=== PATIENT | female | born 1940 | race Caucasian/White ===

== ENCOUNTER 2018-12-08 18:03 | Inpatient (IN) ==
[2018-12-08 18:27] LABS: Hematocrit 40.1 % (35.3-44.9); Hemoglobin 13.6 g/dL (11.5-15.4); Mean Corpuscular HGB Conc 33.9 g/dL (31.6-35.5); Mean Corpuscular Hemoglobin 30.7 pg (28.0-33.3); Mean Corpuscular Volume 90.5 fL (83.0-100.0); Mean Platelet Volume 9.6 fL (9.4-12.4); Platelet Count 326 K/mcL (140-400); Red Blood Count 4.43 M/mcL (3.82-4.97); Red Cell Distribution Width 13.8 % (11.5-14.5)
[2018-12-08 18:36] LABS: Prothrombin Time 11.2 Seconds (9.4-12.1)
[2018-12-08] MEDS ORDERED: Aspirin 81 MG TAB.CHEW PO STA (19:00)
--- NOTE | 2018-12-08 19:07 | Emergency Department Note ---
Disposition Clinical Impression: CVA (cerebral vascular accident) Qualifiers: CVA mechanism: unspecified Qualified Code(s): I63.9 - Cerebral infarction, unspecified Disposition: Admitted As Inpatient Condition: Good Referrals: Bina Ontiveros MD [Primary Care Provider] - Time of Disposition: 19:07 General Adult HPI - General Chief complaint: ED Neuro Symptoms/Deficit Stated complaint: poss stroke Time Seen by Provider: 12/08/18 18:12 Source: patient, family Limitations: no limitations - History of Present Illness Pain Scale: 0 - Related Data Home Medications Medication Instructions Recorded Confirmed Aspirin 81 mg PO DAILY 03/24/16 03/24/16 Flaxseed Oil 1,000 mg PO DAILY 03/24/16 03/24/16 LORazepam [Ativan] 1 mg PO BID PRN 03/24/16 03/24/16 Lutein 40 mg PO DAILY 03/24/16 03/24/16 Multivitamin [Multi-Day Vitamins] 1 each PO DAILY 03/24/16 03/24/16 Previous Rx's Medication Instructions Recorded Aspirin 81 mg PO DAILY #30 tab.chew 03/27/16 Diltiazem CD (24hr) [Cardizem CD] 240 mg PO DAILY #30 cap.er.24h 03/27/16 Allergies Allergy/AdvReac Type Severity Reaction Status Date / Time No Known Allergies Allergy Verified 02/18/15 15:50 Past Medical History - Past Medical History Medical history: Reports: hypertension, other Surgical history: Reports: no surgical history Psychiatric history: Reports: no psych history 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 - Social History Smoking Status: Former smoker Smokeless Tobacco Status: No Alcohol use: Reports: none Drug use: Reports: none Physical Exam - General Limitations: no limitations General appearance: alert, in no apparent distress Course Vital Signs Temperature 97.6 F 12/08/18 18:03 Pulse Rate 70 12/08/18 18:03 Respiratory Rate 18 12/08/18 18:03 Blood Pressure 184/100 12/08/18 18:03 O2 Sat by Pulse Oximetry 97 12/08/18 18:03 Temperature 97.8 F 12/08/18 18:23 Pulse Rate 66 12/08/18 18:38 Respiratory Rate 18 12/08/18 18:38 Blood Pressure 165/69 12/08/18 18:38 O2 Sat by Pulse Oximetry 97 12/08/18 18:06 Oxygen Delivery Oxygen Delivery Room Air Medical Decision Making - Lab Data Result diagrams: 12/08/18 18:20 Lab Results 12/08/18 12/08/18 12/08/18 Range/Units 18:13 18:20 18:20 WBC 10.0 (4.3-11.1) K/mcL RBC 4.43 (3.82-4.97) M/mcL Hgb 13.6 (11.5-15.4) g/dL Hct 40.1 (35.3-44.9) % MCV 90.5 (83.0-100.0) fL MCH 30.7 (28.0-33.3) pg MCHC 33.9 (31.6-35.5) g/dL RDW 13.8 (11.5-14.5) % Plt Count 326 (140-400) K/mcL MPV 9.6 (9.4-12.4) fL PT 11.2 (9.4-12.1) Seconds INR 1.0 APTT 31.0 (26.0-36.0) Seconds POC Glucose 96 (70-99) mg/dL Attestation Statement - Attestation Attestation: I reviewed the residents documentation and agree with the residents assessment and plan of care. I have personally had face to face time with the patient. (Brief History, Brief Exam, and MDM) I personally supervised and was present for the guerrero/critical portions of the following procedures completed by the resident: EKG 78 year old female presents to the eD with complaints of right sided facial droop with last known well possibly being 1900 last night before bed. Cabrera has not previous history of strokes inthe past and her NIH score is 2. Patient has residual defecits on exam and we have called STROKE ALERT. Dr. Lewis from [facility] does not recommend tpa as she is outside the window but does recommend admission with MRI. Discussed case with Dr. dewitt and she accept to medicine.
--- NOTE | 2018-12-08 19:25 | Emergency Department Note ---
Disposition Clinical Impression: ANDER (acute kidney injury) CVA (cerebral vascular accident) Qualifiers: CVA mechanism: unspecified Qualified Code(s): I63.9 - Cerebral infarction, unspecified Disposition: Admitted As Inpatient Condition: Good Time of Disposition: 20:00 General Adult HPI - General Chief complaint: ED Neuro Symptoms/Deficit Stated complaint: poss stroke Time Seen by Provider: 12/08/18 18:12 Source: patient, family Limitations: no limitations Nursing Notes Reviewed: Yes Vital Signs Reviewed: Yes - History of Present Illness HPI Narrative: 78-year-old female presents emergency department with concern for last a well 23 hours prior to arrival. Patient with right-sided facial droop as well as some mild slurring of her speech. States that she has been going in and out of her known atrial fibrillation of last couple days. Denies fever, chills, chest pain, pressure, tightness, abdominal pain, nausea, vomiting., Dysuria, urinary urgency. Pain Scale: 0 - Related Data Home Medications Medication Instructions Recorded Confirmed Flaxseed Oil 1,000 mg PO DAILY 03/24/16 12/08/18 LORazepam [Ativan] 0.5 mg PO HS 03/24/16 12/08/18 Lutein 40 mg PO DAILY 03/24/16 12/08/18 Multivitamin [Multi-Day Vitamins] 1 each PO DAILY 03/24/16 12/08/18 Metoprolol [Lopressor] 37.5 mg PO BID 12/08/18 12/08/18 Previous Rx's Medication Instructions Recorded Aspirin 81 mg PO DAILY #30 tab.chew 03/27/16 Allergies Allergy/AdvReac Type Severity Reaction Status Date / Time No Known Allergies Allergy Verified 02/18/15 15:50 All systems ED: reviewed and negative except as stated. Review of Systems: As Per HPI Constitutional: Denies: fever, chills Cardiovascular: Reports: palpitations. Denies: chest pain Respiratory: Denies: cough, dyspnea Gastrointestinal: Denies: abdominal pain, nausea, vomiting Genitourinary: Denies: urgency, dysuria, frequency Neurological: Reports: other (Right-sided facial droop) Past Medical History - Past Medical History Attestation: Yes The following information was validated with the patient. 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 Absent: respiratory distress, accessory muscle use - Cardiovascular Cardiovascular exam: Present: regular rate, normal rhythm, normal heart sounds - Abdominal Exam Abdominal exam: Present: soft, Non-Tender. Absent: distention, guarding, rebound, rigidity - Extremities Exam Extremities exam: Present: normal capillary refill - Back Exam Back exam: Present: full ROM - Neurological Exam Neurological exam: Present: alert, oriented X3, other (Patient has right-sided facial droop with mild slurred speech. NIH of 2, GCS 15). Absent: motor sensory deficit - Psychiatric Psychiatric exam: Present: normal affect, normal mood - Skin Skin exam: Present: warm, dry, intact, normal color. Absent: rash Course Vital Signs Temperature 97.6 F 12/08/18 18:03 Pulse Rate 70 12/08/18 18:03 Respiratory Rate 18 12/08/18 18:03 Blood Pressure 184/100 12/08/18 18:03 O2 Sat by Pulse Oximetry 97 12/08/18 18:03 Temperature 97.9 F 12/08/18 23:59 Pulse Rate 63 12/08/18 23:59 Respiratory Rate 16 12/08/18 23:59 Blood Pressure 179/71 12/08/18 23:59 O2 Sat by Pulse Oximetry 96 12/08/18 23:59 Oxygen Delivery Oxygen Delivery Room Air Medical Decision Making - [facility] Narrative Medical decision making narrative: 78-year-old female was emergency department with concern for acute onset of stroke. Patient has an NIH of 2. She was initially 23 hours out of the window. CT of head and not reveal any acute changes. I spoke with Dr. Lewis from [facility] who had no relevant medications other than admission for further stroke evaluation after facility. Patient's right-sided facial droop had improved since initial presentation. We gave her aspirin.No acute ischemic changes are noted on the EKG. No significant changes compared to the old EKG dated on reveals sinus rhythm with no ischemic ST changes. No evidence of atrial fibrillation at this time. Patient did have an elevated creatinine which may have predisposed her to going in and out of A. fib over the last couple days which may have prompted the stroke. Patient also not taking her heart rate medication. She is also not on any blood thinners and does not want to be on them. Dr. Pulido accepted patient for admission. Head CT 12/08/18 18:13 IMPRESSION: No acute intracranial abnormality. Slight to mild cerebral atrophy appropriate for age. Mild chronic ischemic changes also age-appropriate. No significant change from the prior study. D/ / Leo Hernández MD / Leo Hernández MD Interpreting Provider: Leo Hernández MD - Lab Data Result diagrams: 12/08/18 18:20 12/08/18 18:20 Lab Results 12/08/18 12/08/18 12/08/18 Range/Units 18:13 18:20 18:20 WBC 10.0 (4.3-11.1) K/mcL RBC 4.43 (3.82-4.97) M/mcL Hgb 13.6 (11.5-15.4) g/dL Hct 40.1 (35.3-44.9) % MCV 90.5 (83.0-100.0) fL MCH 30.7 (28.0-33.3) pg MCHC 33.9 (31.6-35.5) g/dL RDW 13.8 (11.5-14.5) % Plt Count 326 (140-400) K/mcL MPV 9.6 (9.4-12.4) fL PT 11.2 (9.4-12.1) Seconds INR 1.0 APTT 31.0 (26.0-36.0) Seconds Sodium (136-145) mEq/L Potassium (3.5-5.1) mEq/L Chloride (98-107) mEq/L Carbon Dioxide (23-29) mEq/L BUN (8-23) mg/dL Creatinine (0.60-1.20) mg/dL Est GFR ( Amer) (> 60) Est GFR (Non-Af Amer) (> 60) BUN/Creatinine Ratio (6-26) Glucose (70-105) mg/dL POC Glucose 96 (70-99) mg/dL Calculated Osmolality (280-300) Calcium (8.6-10.3) mg/dL Troponin I (< 0.04) ng/mL 12/08/18 Range/Units 18:20 WBC (4.3-11.1) K/mcL RBC (3.82-4.97) M/mcL Hgb (11.5-15.4) g/dL Hct (35.3-44.9) % MCV (83.0-100.0) fL MCH (28.0-33.3) pg MCHC (31.6-35.5) g/dL RDW (11.5-14.5) % Plt Count (140-400) K/mcL MPV (9.4-12.4) fL PT (9.4-12.1) Seconds INR APTT (26.0-36.0) Seconds Sodium 139 (136-145) mEq/L Potassium 3.6 (3.5-5.1) mEq/L Chloride 104 (98-107) mEq/L Carbon Dioxide 22 L (23-29) mEq/L BUN 17 (8-23) mg/dL Creatinine 1.30 H (0.60-1.20) mg/dL Est GFR ( Amer) 48 L (> 60) Est GFR (Non-Af Amer) 40 L (> 60) BUN/Creatinine Ratio 13 (6-26) Glucose 97 (70-105) mg/dL POC Glucose (70-99) mg/dL Calculated Osmolality 289 (280-300) Calcium 9.3 (8.6-10.3) mg/dL Troponin I < 0.03 (< 0.04) ng/mL - EKG Data EKG #1 EKG attestation: Yes I reviewed and interpreted this EKG. EKG results narrative: 18:27 Heart rate 60 bpm, W[place] 142 ms, QRS is 101 ms, QTC 436 segs, attacks deviation. Sinus rhythm with no ischemic ST changes. NIH Stroke Scale - Level of Consciousness LOC: Alert - LOC Questions LOC Questions: Answers both correctly - LOC Commands LOC Commands: Performs both correctly - Best Gaze Best Gaze: Normal - Visual Visual: No visual loss - Facial Palsy Facial Palsy: Minor asymmetry on smiling, flattened nasolabial fold - Motor Arms Motor Arm-Left: No drift for 10 seconds Motor Arm-Right: No drift for 10 seconds - Motor Legs Motor Leg-Left: No drift for 5 seconds Motor Leg-Right: No drift for 5 seconds - Limb Ataxia Limb Ataxia: Normal, No Ataxia - Sensory Sensory: Normal - Best Language Best Language: No aphasia - Dysarthria Dysarthria: Mild, slurs some words - Extinction and Inattention Extinction and Inattention: Normal - NIHSS Total Score NIHSS Total Score: 2
[2018-12-08 19:49] LABS: Troponin I < 0.03 ng/mL (< 0.04)
[2018-12-08 20:01] LABS: BUN/Creatinine Ratio 13 (6-26); Blood Urea Nitrogen 17 mg/dL (8-23); Calcium 9.3 mg/dL (8.6-10.3); Carbon Dioxide 22 mEq/L (23-29); Chloride 104 mEq/L (98-107); Glucose 97 mg/dL (70-105); Osmolality,Calculated 289 (280-300); Potassium 3.6 mEq/L (3.5-5.1); Sodium 139 mEq/L (136-145); eGFR For African Americans 48 (> 60); eGFR For Non-African Americans 40 (> 60)
[2018-12-08] MEDS ORDERED: 0.9 % Sodium Chloride 1,000 ML IVC ONE (20:11)
--- NOTE | 2018-12-08 20:25 | Internal Med History&Physical ---
Date of Encounter: 12/08/18 Time of Encounter: 06:05 Internal Medicine - H&P: HPI Chief complaint: left side facial droop History of present illness: Ms. Zarco is a 78 year old female with past medical history of paroxysmal A. fib and hypertension who presented to the emergency department with left side facial droop and slurred speech and vision loss on the left eye. The patient stated that she was in and out atrial fibrillation for the last 2 days. The patient has history of paroxysmal A. fib and apparently declined anticoagulation therapy. The patient was evaluated by the ER staff and stroke alert was called. [facility] team decided the patient is not a candidate for thrombolytic therapy. CAT scan of the head revealed no significant abnormalities. The patient was admitted for further evaluation and management of CVA. Past Med Surg Social Fam HX - Past Medical History Medical history: hypertension, other Additional medical history: a. fib Psychiatric history: no psych history - Past Surgical History Surgical History: no surgical history - Social History Smoking Status: Former smoker Smokeless Tobacco Status: No Alcohol use: none Drug use: none - Family History Mother Living Status: Hx Family Cardiac Disorders: Yes Hx Family Respiratory Disorders: No Hx Family Cancer: No Hx Family GI Disorders: No Hx Family Endocrine Disorder: No Father Living Status: Age at : 68 Cause of : cardiac arrest Hx Family Respiratory Disorders: No Hx Family Cancer: No Hx Family GI Disorders: No Hx Family Genitourinary Disorders: No Hx Family Endocrine Disorder: No Hx Family Autoimmune Disorders: No Internal Medicine - H&P: Meds Lutein 40 mg PO QPM 03/24/16 [History] Cholecalciferol (Vitamin D3) [Vitamin D3] 1,000 units PO QAM 12/09/18 [History] Multivitamin [Daily Multiple Vitamin] 1 tab PO QPM 12/09/18 [History] Omeprazole Magnesium [Prilosec Otc] 20 mg PO DAILY 12/09/18 [History] Acetaminophen [Tylenol] 650 mg PO Q6HR PRN #30 tablet 12/11/18 [Rx] Atorvastatin [Lipitor] 40 mg PO HS #30 tablet 12/11/18 [Rx] LORazepam [Ativan] 0.5 mg PO HS 7 Days #7 tablet 12/11/18 [Rx] Lisinopril [Zestril] 10 mg PO DAILY #30 tablet 12/11/18 [Rx] Metoprolol XL (24 HR) Succ [Toprol Xl] 25 mg PO DAILY #30 tab.er.24h 12/11/18 [Rx] Rivaroxaban [Xarelto] 20 mg PO QDPC #30 tablet 12/11/18 [Rx] Allergy/AdvReac Type Severity Reaction Status Date / Time Milk Containing Products Allergy Vomiting Verified 12/13/18 09:09 All Systems PM: A 10-system review of systems was performed and is negative for pertinent findings except as documented above in the HPI. - Constitutional Vitals: Temp Pulse Resp BP Pulse Ox 97.8 F 63 18 160/134 98 12/08/18 18:23 12/08/18 20:01 12/08/18 20:01 12/08/18 20:01 12/08/18 20:01 General appearance: Present: A&O X 3 Exam: . - Head Head exam: Present: atraumatic, normocephalic - Neck Neck exam general surgery: Present: supple, trachea midline. Absent: lymphadenopathy - Respiratory Respiratory exam: Present: CTAB. Absent: accessory muscle use, rales, rhonchi, wheezes - Cardiovascular Cardiovascular exam: Present: RRR, +S1, +S2. Absent: diastolic murmur, gallop, rubs, systolic murmur - GI/Abdominal GI/Abdominal exam: Present: normal bowel sounds, soft, no peritoneal signs. Absent: distended, tenderness - Extremities Exam Extremities exam: Present: warm, radial pulses palpable and symmetrical. Absent: calf tenderness, cyanotic, pedal edema Internal Med - H&P Results - Labs CBC & Chem 7: 12/10/18 02:30 12/10/18 02:30 Labs: Short CBC 12/08/18 Range/Units 18:20 WBC 10.0 (4.3-11.1) K/mcL Hgb 13.6 (11.5-15.4) g/dL Hct 40.1 (35.3-44.9) % Plt Count 326 (140-400) K/mcL BMP 12/08/18 18:20 Sodium 139 Potassium 3.6 Chloride 104 Carbon Dioxide 22 L BUN 17 Creatinine 1.30 H Glucose 97 Calcium 9.3 Cardiac Enzymes 12/08/18 Range/Units 18:20 Troponin I < 0.03 (< 0.04) ng/mL - Impressions ITS Impressions Head CT 12/08/18 18:13 IMPRESSION: No acute intracranial abnormality. Slight to mild cerebral atrophy appropriate for age. Mild chronic ischemic changes also age-appropriate. No significant change from the prior study. 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 fib for the last 48 hours. Patient declined chronic anticoagulation therapy in the past. we'll continue to monitor patient in telemetry. 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 when nece ssary IV antihypertensive meds for systolic blood pressure above 180 and diastolic pressure above 100. Qualifiers: Hypertension type: unspecified Qualified Code(s): I10 - Essential (primary) hypertension (5) ANDER (acute kidney injury) Status: Acute Assessment and plan: most likely secondary to prerenal etiology in the setting of possible decreased kidney perfusion in the setting of Possible hypotensive episodes associated with paroxysmal A. fib, will start the patient on isotonic saline, continue to monitor SERGIO was, renal dosing of medication as current EGFR. - Time Spent With Patient Total time spent is greater than 50% in coordination of care (as documented) at patient's floor/unit and/or counseling patient:
[2018-12-08] MEDS ORDERED: Naloxone 0.4 MG/ML INJ IVP PRN (20:29)
[2018-12-08] MEDS ORDERED: 0.9 % Sodium Chloride 1,000 ML IVC SCH (22:00)
[2018-12-09 03:59] LABS: Bilirubin,Urine Negative (Negative); Blood,Urine Trace (Negative); Clarity,Urine Clear (Clear); Color,Urine Yellow (Yellow); Glucose,Urine (UA) Normal (Normal); Ketones,Urine Negative (Negative); Leukocyte Esterase,Urine Large (Negative); Nitrite,Urine Negative (Negative); Protein,Urine Negative (Neg-Trace); Specific Gravity,Urine 1.008 (1.010-1.025); Urobilinogen,Urine Normal (Normal)
[2018-12-09 04:02] LABS: Bacteria,Urine None Seen per hpf (None-Few); Hyaline Casts,Urine None Seen per lpf (None-Few); RBC,Urine 0-3 per hpf (0-3); Squamous Epithelial Cell,Urine Moderate per lpf (None-Few); WBC,Urine 50-100 per hpf (0-3)
[2018-12-09 04:09] LABS: Amphetamine Screen,Urine Negative ng/mL (Cutoff=1000); Barbiturate Screen,Urine Negative ng/mL (Cutoff=200); Benzodiazepines Screen,Urine Negative ng/mL (Cutoff=200); Cannabinoid Screen,Urine Negative ng/mL (Cutoff = 50); Cocaine Screen,Urine Negative ng/mL (Cutoff= 300); Opiate Screen,Urine Negative ng/mL (Cutoff=300); Phencyclidine Screen,Urine Negative ng/mL (Cutoff=25)
[2018-12-09 04:52] LABS: Basophils # 0.1 K/mcL (0.0-0.2); Basophils % 1.4 %; Eosinophils # 0.3 K/mcL (0.0-0.6); Eosinophils % 3.9 %; Hematocrit 37.7 % (35.3-44.9); Hemoglobin 12.7 g/dL (11.5-15.4); Immature Granulocytes % 0.3 % (0-4); Lymphocytes # 2.3 K/mcL (0.6-4.6); Lymphocytes % 29.2 %; Mean Corpuscular HGB Conc 33.7 g/dL (31.6-35.5); Mean Platelet Volume 9.9 fL (9.4-12.4); Monocytes # 0.6 K/mcL (0.0-1.3); Monocytes % 7.3 %; Neutrophils # 4.6 K/mcL (1.6-8.9); Platelet Count 284 K/mcL (140-400); Red Cell Distribution Width 13.7 % (11.5-14.5); Segmented Neutrophils % 57.9 %; White Blood Count 7.9 K/mcL (4.3-11.1)
[2018-12-09 04:58] LABS: Prothrombin Time 11.9 Seconds (9.4-12.1)
[2018-12-09 05:01] LABS: Activated Partial Thrombo Time 29.7 Seconds (26.0-36.0)
[2018-12-09 05:07] LABS: Phosphorous 3.3 mg/dL (2.7-4.5)
[2018-12-09 05:10] LABS: Alanine Aminotransferase 10 Units/L (7-52); Albumin 3.4 g/dL (3.5-5.7); Albumin/Globulin Ratio 1.2 (1.1-2.2); Alkaline Phosphatase 67 Units/L (34-104); Aspartate Amino Transferase 16 Units/L (13-39); BUN/Creatinine Ratio 11 (6-26); Bilirubin,Total 0.6 mg/dL (0.3-1.0); Blood Urea Nitrogen 14 mg/dL (8-23); Calcium 8.8 mg/dL (8.6-10.3); Carbon Dioxide 25 mEq/L (23-29); Chloride 107 mEq/L (98-107); Chol/HDL Ratio 4.4 (0-4.9); Cholesterol 197 mg/dL (< 200); Globulin 2.8 g/dL (2.4-3.5); Glucose 97 mg/dL (70-105); HDL Cholesterol 45 mg/dL (40-59); LDL Cholesterol,Calculated 122 mg/dL (0-99); LDL Cholesterol,Direct 130 mg/dL (75-193); Osmolality,Calculated 292 (280-300); Potassium 3.3 mEq/L (3.5-5.1); Sodium 141 mEq/L (136-145); Total Protein 6.2 g/dL (6.4-8.9); Triglycerides 152 mg/dL (< 150); Troponin I < 0.03 ng/mL (< 0.04); eGFR For African Americans 51 (> 60); eGFR For Non-African Americans 42 (> 60)
[2018-12-09 07:55] LABS: Estimated Average Glucose 126 mg/dl
[2018-12-09] MEDS: Aspirin 81 MG TAB.CHEW PO SCH (09:13)
[2018-12-09] MEDS: Metoprolol XL (24 HR) Succ 25 MG TAB.ER.24H PO SCH (09:13)
[2018-12-09] MEDS ORDERED: *HR* Heparin 5,000 UNIT/ML VIAL SQ SCH (10:00)
[2018-12-09] MEDS ORDERED: Apixaban 5 MG TABLET PO SCH (11:31)
[2018-12-09] MEDS ORDERED: 0.9 % Sodium Chloride 1,000 ML IVC SCH (11:45)
[2018-12-09 13:00] LABS: Hematocrit 38.1 % (35.3-44.9); Hemoglobin 12.8 g/dL (11.5-15.4); Mean Corpuscular HGB Conc 33.6 g/dL (31.6-35.5); Mean Corpuscular Hemoglobin 30.9 pg (28.0-33.3); Mean Platelet Volume 9.9 fL (9.4-12.4); Platelet Count 302 K/mcL (140-400); Red Blood Count 4.14 M/mcL (3.82-4.97); Red Cell Distribution Width 13.8 % (11.5-14.5); White Blood Count 8.4 K/mcL (4.3-11.1)
[2018-12-09 13:08] LABS: Heparin anti-factor XA UFH 0.08 IU/mL (0.30-0.70); Prothrombin Time 11.7 Seconds (9.4-12.1)
--- NOTE | 2018-12-09 13:09 | Internal Med Progress Note ---
Hospitalist Progress Note - Encounter Date of Encounter: 12/09/18 Time of Encounter: 13:05 - Subjective Interval History: I have seen and evaluated the patient at bedside. patient with mild focal weakness on the right upper extr and word finding difficulties. denies palpitation or chest pain. denies nausea or vomiting. - Exam Vitals: Temp Pulse Resp BP Pulse Ox 97.8 F 64 12 173/89 99 12/09/18 12:09 12/09/18 12:09 12/09/18 12:09 12/09/18 12:12/09/18 12:09 Exam: Vitals: Reviewed General: Alert and oriented x4. In mild distress due to word findings diffic ulties and right upper extr weakness Cardiovascular:Irregularly irregular, normal S1 & S2, no rubs, murmurs or gallops. Lungs: CTA b/l, no wheezes or crackles. Abdomen: Soft, non-tender, no rigidity. Extremities: strength is 5/5 in the upper and lower extr Neurological: mild right facial droop. dysarthria Rest of the physical exam is non contributory - Assessment and Plan (1) CVA (cerebral vascular accident) Current Visit: Yes Status: Acute Assessment and Plan: patient with acute CVA possible due to atrial fibrillation. MR/MR head/brain wo con IMPRESSION: 1. Scattered acute infarcts involving the left frontal and temporal lobes. No significant mass effect or midline shift. 2. Otherwise, no acute intracranial abnormality. 3. Minimal global parenchymal volume loss with minimal chronic microvascular ischemic changes. EV/EV echo with saline Impressions: LVEF 55-60%. Mild left ventricular diastolic dysfunction. Normal right ventricular structure and function. Mild biatrial dilatation. Mild-moderate aortic regurgitation. Mild-moderate mitral regurgitation. Moderate tricuspid regurgitation. Mild pulmonary hypertension. No evidence of PFO with agitated saline contrast. Plan: - patient started on a heparin drip - Neurology consulted, recommendations appreciated -started on aspirin 81mg/PO daily and a statin. - CTA head and neck at neurology discretion (2) ANDER (acute kidney injury) Current Visit: Yes Status: Acute Assessment and Plan: possible low pre-load. patient on IV hydration. will -recheck kidney function tomorrow morning. (3) Atrial fibrillation Current Visit: Yes Status: Chronic Assessment and Plan: patient reported being diagnosed with A.fib more than 15 years ago but she refused to be on an anticoagulant due to fears of bleeding. Plan - On metoprolol 25mg/PO daily for rate control - started on heparin drip. will be discharged on an oral anticoagulant CHADSVASC score >2. (4) Hypertension Current Visit: Yes Status: Chronic Assessment and Plan: will continue home anti-hypertensive medications. (5) Tricuspid regurgitation Current Visit: No Status: Chronic DVT Prophylaxis: intermittent pneumatic compression - Summary of Assessment and Plan Summary of Assessment and Plan: patien to remain in the hospital due to Acute CVA. potential dc tomorrow - Time Spent with Patient Total time spent is greater than 50% in coordination of care (as documented) at patient's floor/unit and/or counseling patient: Greater than 35 minutes (45) Plan of Care Discussed with: patient (and her daughter) Internal Medicine: Result - Labs CBC & Chem 7: 12/09/18 04:28 12/09/18 04:28 Labs: Short CBC 12/08/18 12/09/18 Range/Units 18:20 04:28 WBC 10.0 7.9 (4.3-11.1) K/mcL Hgb 13.6 12.7 (11.5-15.4) g/dL Hct 40.1 37.7 (35.3-44.9) % Plt Count 326 284 (140-400) K/mcL Neutrophils # 4.6 (1.6-8.9) K/mcL BMP 12/08/18 12/09/18 18:20 04:28 Sodium 139 141 Potassium 3.6 3.3 L Chloride 104 107 Carbon Dioxide 22 L 25 BUN 17 14 Creatinine 1.30 H 1.24 H Glucose 97 97 Calcium 9.3 8.8 Cardiac Enzymes 12/08/18 12/09/18 Range/Units 18:20 04:28 Troponin I < 0.03 < 0.03 (< 0.04) ng/mL Liver Function 12/09/18 Range/Units 04:28 Total Bilirubin 0.6 (0.3-1.0) mg/dL AST 16 (13-39) Units/L ALT 10 (7-52) Units/L Alkaline Phosphatase 67 (34-104) Units/L Albumin 3.4 L (3.5-5.7) g/dL Urine 12/09/18 Range/Units 03:34 Urine Color Yellow (Yellow) Urine Clarity Clear (Clear) Urine pH 7.0 (5.0-8.0) pH Units Ur Specific Cobb 1.008 L (1.010-1.025) Urine Protein Negative (Neg-Trace) mg/dL Urine Glucose (UA) Normal (Normal) mg/dL - ABG Interpretation ABG results: PT/INR, D-dimer PT 11.9 Seconds (9.4-12.1) 12/09/18 04:28 - Impressions Impressions Head CT 12/08/18 18:13 IMPRESSION: No acute intracranial abnormality. Slight to mild cerebral atrophy appropriate for age. Mild chronic ischemic changes also age-appropriate. No significant change from the prior study. D/ / Leo Hernández MD / Leo Hernández MD Interpreting Provider: Leo Hernández MD Echocardiogram 12/09/18 20:32 Impressions: LVEF 55-60%. Mild left ventricular diastolic dysfunction. Normal right ventricular structure and function. Mild biatrial dilatation. Mild-moderate aortic regurgitation. Mild-moderate mitral regurgitation. Moderate tricuspid regurgitation. Mild pulmonary hypertension. No evidence of PFO with agitated saline contrast. Left Ventricular Wall Motion: Rest Echo Findings All wall segments showed normal motion. Findings: Study Quality * Technically adequate exam. ECG Findings * Sinus rhythm with PACs. Left Ventricle * LVEF 55-60%. * Normal LV chamber size, wall thickness and systolic function. * Mild left ventricular diastolic dysfunction. Right Ventricle * Normal right ventricular structure and function. Left Atrium * Mildly dilated left atrium. Right Atrium * Mildly dilated right atrium. Interatrial Septum * No evidence of PFO with agitated saline contrast. Aortic Valve * Trileaflet aortic valve. * Moderately thickened aortic valve leaflets. * Mild-moderate aortic regurgitation. * No aortic stenosis. Mitral Valve * Mild mitral annular calcification * Mild-moderate mitral regurgitation. * No mitral stenosis. Tricuspid Valve * Normal tricuspid valve structure. * No tricuspid stenosis. * Moderate tricuspid regurgitation. * Estimated RVSP is 46 mmHg. * Estimated RA pressure is 3 mmHg. * Mild pulmonary hypertension. Pulmonic Valve * Pulmonic valve is not well visualized. * No pulmonic stenosis. * Trace pulmonic regurgitation. Aorta * Normally sized aortic root. Pericardium * The pericardium appears normal. IVC * The IVC is not dilated. * > 50% respiratory change Brain MRI 12/09/18 20:33 IMPRESSION: 1. Scattered acute infarcts involving the left frontal and temporal lobes. No significant mass effect or midline shift. 2. Otherwise, no acute intracranial abnormality. 3. Minimal global parenchymal volume loss with minimal chronic microvascular ischemic changes. These results were sent to the [facility] ([facility] on 12/09/2018 at 11:08 am to be communicated to the referring/covering health care provider/office. D/ / Leno Levin MD / Leno Levin MD Interpreting Provider: Leno Levin MD Consult Discharge Plan - Plan Referrals: Bina Ontiveros MD [Primary Care Provider] - (1) CVA (cerebral vascular accident) Qualifiers: CVA mechanism: embolism Precerebral and cerebral artery: unspecified precerebral artery Qualified Code(s): I63.10 - Cerebral infarction due to embolism of unspecified precerebral artery (3) Atrial fibrillation Qualifiers: Atrial fibrillation type: chronic Qualified Code(s): I48.2 - Chronic atrial fibrillation (4) Hypertension Qualifiers: Hypertension type: unspecified Qualified Code(s): I10 - Essential (primary) hypertension (5) Tricuspid regurgitation Qualifiers: Cardiac valve disease etiology: etiology unspecified Qualified Code(s): I07.1 - Rheumatic tricuspid insufficiency
[2018-12-09] MEDS: Heparin 25,000 UNIT/250 ML D5W 25,000 UNIT/250 ML IV.SOLN IVC SCH (13:14)
--- NOTE | 2018-12-09 13:24 | Neurology - Consult Note ---
<Mu Amaro M - Last Filed: 12/09/18 13:54> Date of Encounter: 12/09/18 Time of Encounter: 12:40 Assessment and Plan (1) CVA (cerebral vascular accident) Current Visit: Yes Status: Acute REviewed MRI revealing scattered acute infarcts in left frontal and temporal lobes. Recommend carotid doppler study to rule out other causes of infarcts although paroxysmal atrial fibrillation most likely the cause of embolic stroke. Agree with anticoagulation. Case discussed with Dr. Machuca. Qualifiers: CVA mechanism: embolism Precerebral and cerebral artery: unspecified precerebral artery Qualified Code(s): I63.10 - Cerebral infarction due to embolism of unspecified precerebral artery History of Present Illness Chief complaint: "Had a hard time speaking" HPI: Ms. Zacro is a 78 year old female with PMH including paroxysmal A fib and HTN who was admitted from the ED for right sided facial droop and aphasia. Patient reports she was on the phone with her daughter yesterday around 3pm and noticed that she was having a hard time speaking. Her daughter became concerned and drove over to her house. Her daughter who was present at time of interview states she noticed Ms. Zarco had facial droop and took her to the ER. Ms. Zarco denies having any similar episodes in the past. She admits to weakness and fatigue for the past two days which she states corresponds with her atrial fibrillation "being back out of rhythm." On interview today she is displaying some weakness of right upper extremity and minimal word finding difficulty. She denies dizziness or difficulty swallowing. Past Med Surg Social Fam HX - Past Medical History Medical history: hypertension, TIA, other Additional medical history: a-fib Psychiatric history: no psych history - Past Surgical History Surgical History: no surgical history - Social History Smoking Status: Former smoker Smokeless Tobacco Status: No Alcohol use: none Drug use: none - Family History Mother Living Status: Hx Family Cardiac Disorders: Yes Hx Family Respiratory Disorders: No Hx Family Cancer: No Hx Family GI Disorders: No Hx Family Endocrine Disorder: No Father Living Status: Age at : 68 Cause of : cardiac arrest Hx Family Respiratory Disorders: No Hx Family Cancer: No Hx Family GI Disorders: No Hx Family Genitourinary Disorders: No Hx Family Endocrine Disorder: No Hx Family Autoimmune Disorders: No Medications and Allergies LORazepam [Ativan] 0.5 mg PO HS 03/24/16 [History] Lutein 40 mg PO QPM 03/24/16 [History] Aspirin 81 mg PO DAILY #30 tab.chew 03/27/16 [Rx] Metoprolol [Lopressor] 25 mg PO QAM 12/08/18 [History] Cholecalciferol (Vitamin D3) [Vitamin D3] 1,000 units PO QAM 12/09/18 [History] Flaxseed Oil [[place]-3 Flaxseed Oil] 1,000 mg PO QPM 12/09/18 [History] Metoprolol [Lopressor] 12.5 mg PO QAM 12/09/18 [History] Multivitamin [Daily Multiple Vitamin] 1 tab PO QPM 12/09/18 [History] Omeprazole Magnesium [Prilosec Otc] 20 mg PO DAILY 12/09/18 [History] Allergy/AdvReac Type Severity Reaction Status Date / Time No Known Allergies Allergy Verified 02/18/15 15:50 All Systems: The remainder of the systems were reviewed and are negative - Constitutional Constitutional ROS IM: as per HPI, weakness - Nose, Mouth, Throat Nose, mouth and throat: no abnormal hearing, no bleeding gums, no change in voice, no dizziness, no dysphagia - Cardiovascular Cardiovascular ROS IM: no chest pain, no chest pain with activity, no claudication, no diaphoresis, no leg edema, no pedal edema - Respiratory Respiratory IM: no cough, no dyspnea, no wheezing - Gastrointestinal Gastrointestinal: no abdominal pain, no coffee ground emesis, no dysphagia - Genitourinary Genitourinary ROS: no abnormal meses, no change in urinary stream, no difficulty voiding - Musculoskeletal Musculoskeletal ROS IM: muscle weakness, no arthralgias, no joint swelling, no tingling - Integumentary Integumentary IM: no acne, no alopecia, no erythema - Neurological Neurological ROS: abnormal speech (some difficulty word finding), focal weakness (minimal focal weakness of right upper extremity), no abnormal hearing, no behavioral changes, no disequilibrium, no dizziness, no frequent falls, no paresthesias, no radicular pain, no sensory deficit, no syncope, no tremor(s) - Psychiatric Psychiatric general PM: no anhedonia, no anxiety, no auditory hallucinations, no behavioral changes, no difficulty concentrating, no hallucinations, no homicidal ideation, no suicidal ideation, no visual hallucinations Physical Examination - Vital Signs Vital Signs: Initial Vital Signs Temp Pulse Resp BP Pulse Ox 97.6 F 70 18 184/100 97 12/08/18 18:03 12/08/18 18:03 12/08/18 18:03 12/08/18 18:03 12/08/18 18:03 - Constitutional General appearance: comfortable - Neurologic Sensorimotor examination: intact Motor examination - right side: 3/5: biceps, triceps, head of conservation, 4/5: deltoids, hip flexors, tibialis Anterior, quadriceps, toe extension (EHL), plantarflexion Motor examination - left side: 4/5: deltoids, biceps, triceps, hip flexors, head of conservation, quadriceps, tibialis Anterior, toe extension (EHL), plantarflexion Detailed sensory examination: intact Reflex and gait examination: other (has not gotten out of bed since yesterday) Mental Status Examination: awake, alert, oriented to person, oriented to place, oriented to time, follows commands appropriately, answers questions appropriately, no agnosia Cranial nerve examination: PERRL, EOMI, visual villa intact, sensory to face intact, mastication intact, no facial asymmetry is present, no dysarthria, hearing is intact symmetrically, no atrophy or facial fasiculations present Cerebellar examination: no dysmetria, performs finger to nose and heel to mcdowell symmetrically without ataxia Results - Laboratory Findings CBC and BMP: 12/09/18 12:32 12/09/18 04:28 Abnormal lab findings: Abnormal lab results Potassium 3.3 mEq/L (3.5-5.1) L 12/09/18 04:28 Carbon Dioxide 22 mEq/L (23-29) L 12/08/18 18:20 Creatinine 1.24 mg/dL (0.60-1.20) H 12/09/18 04:28 Est GFR ( Amer) 51 (> 60) L 12/09/18 04:28 Est GFR (Non-Af Amer) 42 (> 60) L 12/09/18 04:28 Hemoglobin A1c 6.0 % (-5.6) H 12/09/18 04:28 Serum Total Protein 6.2 g/dL (6.4-8.9) L 12/09/18 04:28 Albumin 3.4 g/dL (3.5-5.7) L 12/09/18 04:28 Triglycerides 152 mg/dL (< 150) H 12/09/18 04:28 LDL Cholesterol, Calc 122 mg/dL (0-99) H 12/09/18 04:28 Ur Specific Cameron 1.008 (1.010-1.025) L 12/09/18 03:34 Urine Blood Trace (Negative) H 12/09/18 03:34 Ur Leukocyte Esterase Large (Negative) H 12/09/18 03:34 Urine Microscopic WBC 50-100 per hpf (0-3) H 12/09/18 03:34 Ur Squamous Epith Cells Moderate per lpf (None-Few) H 12/09/18 03:34 Consult Discharge Plan - Plan Referrals: Bina Ontiveros MD [Primary Care Provider] - <Jose Manuel Machuca - Last Filed: 12/09/18 17:50> Date of Encounter: 12/09/18 Assessment and Plan (1) CVA (cerebral vascular accident) Current Visit: Yes Status: Acute I have personally performed a [id number] assessment of the patient and have reviewed the PA/CRM MARKETING SPECIALIST note. My impressions are as follows: The chart was reviewed, the patient was seen and examined independently. Did review the MRI personally. The MRI scan of the brain does reveal scattered acute infarcts involving the left frontal and left temporal lobe region. This is consistent with an embolic event. Given her history of paroxysmal atrial fibrillation cardioembolic is highly likely. I agree with starting her on anticoagulation. Echocardiogram is also been completed and was negative for PFO or other embolic source. Carotid duplex Doppler study is pending. Patient will likely not need PT or OT, however may need speech therapy. We will sign out to [employer] and Dr. Parr for further follow-up. Qualifiers: CVA mechanism: embolism Precerebral and cerebral artery: unspecified precerebral artery Qualified Code(s): I63.10 - Cerebral infarction due to embolism of unspecified precerebral artery History of Present Illness HPI: The chart was reviewed, the patient was seen and examined independently. The case was discussed with Dr. Amaro. I agree with his documentation of the history of present illness as stated above. All Systems: The remainder of the systems were reviewed and are negative Review of Systems: The balance of the systems review is negative. Physical Examination - Vital Signs Vital Signs: Initial Vital Signs Temp Pulse Resp BP Pulse Ox 97.6 F 70 18 184/100 97 12/08/18 18:03 12/08/18 18:03 12/08/18 18:03 12/08/18 18:03 12/08/18 18:03 - Exam Exam: General Examination: *CONSTITUTIONAL: normal *GENERAL APPEARANCE OF PATIENT appears healthy and well groomed *EYES: pupils equal, round, reactive to light and accommodation, conjunctiva clear without masses or ulcerations, fundi normal. *CARDIOVASCULAR no peripheral edema, distal temperature normal, dorsalis pedis pulses normal. Refer to vital signs Musculoskeletal: *GAIT AND STATION normal, with normal Romberg testing, no abnormalities such as broad base gait or spasticity *ASSESSMENT OF MUSCLE STRENGTH IN THE UPPER AND LOWER EXTREMITIES right deltoid strength is 4/5, right biceps and triceps strength of 4/5, right iliopsoas strength 4/5, right tibialis anterior strength 5/5, there is normal strength of the left upper and left lower extremities. *MUSCLE TONE IN THE UPPER AND LOWER EXTREMITIES there is a slight pronator drift of the right upper extremity, otherwise there is normal bulk and tone in all 4 extremities. Neurological: *ORIENTATION to time and place *RECURRENT AND REMOTE MEMORY intact *ATTENTION AND CONCENTRATION are normal *LANGUAGE FUNCTION patient does have a slight bit of expressive aphasia. *FUND OF KNOWLEDGE aware of current events, past history, vocabulary *MENTAL attention span and concentration normal. *CN II optic fundi were normal, no papilledema noted. *CN III,IV, PERRLA extraocular eye movements were full, no nystagmus and no ptosis noted. *CN V shows normal sensation and jaw opens symmetrically. *CN VII some flattening of the right nasolabial fold and a slight right lower lip droop. However the muscles of facial expression innervate well when she smiles bilaterally. *CN VIII shows no significant hearing loss on examination in the office. *CN IX,,X palate elevated symmetrically and normal gag reflex was noted. *CN XI normal strength in the sternocleidomastoid muscles, symmetrical shoulder shrugging. *CN XII tongue protruded in the midline, with normal strength and movement. *SENSORY EXAMINATION pinprick sensation intact, and light touch(vibration sense). *REFLEXES: deep tendon reflexes were normal and symmetrical , grade 2/4 diffusely, no pathological reflexes were noted. *CEREBELLAR TESTING normal finger to nose, heel/knee/mcdowell, and tandem walk. *PAIN LEVEL 0 Results - Laboratory Findings CBC and BMP: 12/09/18 12:32 12/09/18 04:28 Abnormal lab findings: Abnormal lab results Heparin Anti-Xa, Unfract 0.08 IU/mL (0.30-0.70) L 12/09/18 12:32 Potassium 3.3 mEq/L (3.5-5.1) L 12/09/18 04:28 Carbon Dioxide 22 mEq/L (23-29) L 12/08/18 18:20 Creatinine 1.24 mg/dL (0.60-1.20) H 12/09/18 04:28 Est GFR ( Amer) 51 (> 60) L 12/09/18 04:28 Est GFR (Non-Af Amer) 42 (> 60) L 12/09/18 04:28 Hemoglobin A1c 6.0 % (-5.6) H 12/09/18 04:28 Serum Total Protein 6.2 g/dL (6.4-8.9) L 12/09/18 04:28 Albumin 3.4 g/dL (3.5-5.7) L 12/09/18 04:28 Triglycerides 152 mg/dL (< 150) H 12/09/18 04:28 LDL Cholesterol, Calc 122 mg/dL (0-99) H 12/09/18 04:28 Ur Specific [place] 1.008 (1.010-1.025) L 12/09/18 03:34 Urine Blood Trace (Negative) H 12/09/18 03:34 Ur Leukocyte Esterase Large (Negative) H 12/09/18 03:34 Urine Microscopic WBC 50-100 per hpf (0-3) H 12/09/18 03:34 Ur Squamous Epith Cells Moderate per lpf (None-Few) H 12/09/18 03:34
--- NOTE | 2018-12-09 16:37 | Electrocardiograph Report ---
[place] [id number] Test Date: 2018-12-08 Pat Name: Janeth Zarco Department: EXAM3 Room: 2NE23 Gender: F [employer] Teacher: : 1940 Requested By: Nicolás Rowe Order Number: [id number] Reading MD: Rocael Chapin Measurements Intervals [place] Rate: 68 P: 53 CO: 143 QRS: -12 QRSD: 101 T: 21 QT: 436 QTc: 464 Interpretive Statements Sinus rhythm Abnormal R-wave progression, early transition Left ventricular hypertrophy Electronically Signed On 12-09-2018 16:36:13 EDT by Rocael Chapin
--- NOTE | 2018-12-09 18:08 | Event Note ---
Date of Encounter: 12/09/18 Time of Encounter: 18:05 Called by the nurse to evaluate the patient at bedside due to worsening dysarthria, chest pain and headache. during my evaluation patient hemodynamically stable. with worsening word finding dificulties when compared to my evaluation this morning. strength in the upper and lower extr unchanged 5/5 and no worsening in her facial drooping. Heparin drip stopped an a stat head CT, 12 lead ekg and serial trops ordered.
[2018-12-09] MEDS ORDERED: Melatonin 3 MG TABLET PO PRN (21:29)
[2018-12-09] MEDS: Acetaminophen 325 MG TABLET PO PRN (23:20)
[2018-12-10 02:55] LABS: Basophils # 0.1 K/mcL (0.0-0.2); Eosinophils # 0.3 K/mcL (0.0-0.6); Eosinophils % 2.6 %; Hematocrit 35.3 % (35.3-44.9); Hemoglobin 11.9 g/dL (11.5-15.4); Immature Granulocytes % 0.3 % (0-4); Lymphocytes # 2.2 K/mcL (0.6-4.6); Lymphocytes % 21.8 %; Mean Corpuscular HGB Conc 33.7 g/dL (31.6-35.5); Mean Corpuscular Hemoglobin 30.4 pg (28.0-33.3); Mean Corpuscular Volume 90.3 fL (83.0-100.0); Mean Platelet Volume 10.1 fL (9.4-12.4); Monocytes # 0.7 K/mcL (0.0-1.3); Monocytes % 6.8 %; Neutrophils # 6.7 K/mcL (1.6-8.9); Platelet Count 272 K/mcL (140-400); Red Blood Count 3.91 M/mcL (3.82-4.97); Red Cell Distribution Width 13.7 % (11.5-14.5); Segmented Neutrophils % 67.5 %
[2018-12-10 03:15] LABS: BUN/Creatinine Ratio 12 (6-26); Blood Urea Nitrogen 11 mg/dL (8-23); Calcium 8.5 mg/dL (8.6-10.3); Carbon Dioxide 21 mEq/L (23-29); Chloride 108 mEq/L (98-107); Glucose 115 mg/dL (70-105); Magnesium 1.9 mg/dL (1.6-2.6); Osmolality,Calculated 284 (280-300); Phosphorous 2.1 mg/dL (2.7-4.5); Potassium 3.3 mEq/L (3.5-5.1); Sodium 137 mEq/L (136-145); eGFR For African Americans > 60 (> 60); eGFR For Non-African Americans 59 (> 60)
[2018-12-10] MEDS: Aspirin 81 MG TAB.CHEW PO SCH (08:14)
[2018-12-10] MEDS: Metoprolol XL (24 HR) Succ 25 MG TAB.ER.24H PO SCH (08:14)
--- NOTE | 2018-12-10 11:24 | Neurology - Consult Note ---
<Mu Amaro M - Last Filed: 12/10/18 11:21> Date of Encounter: 12/10/18 Time of Encounter: 09:15 Assessment and Plan (1) CVA (cerebral vascular accident) Current Visit: Yes Status: Acute Reviewed results of Carotid Duplex revealing 60-79% stenosis. Recommend Vascular consultation due to bilateral carotid stenosis. Continue anticoagulation with Heparin to bridge to coumadin. Case discussed with Attending Neurologist, no care decisions made without consultation with attending. Qualifiers: CVA mechanism: embolism Precerebral and cerebral artery: unspecified precerebral artery Qualified Code(s): I63.10 - Cerebral infarction due to embolism of unspecified precerebral artery History of Present Illness Chief complaint: "Nausea" HPI: Ms. Zarco is a 78 year old female admitted yesterday from ED for embolic CVA. Today she reports nausea without vomitting present since yesterday evening. She is also reporting dizziness which she describes as "feels like the room is spinning." She admits to feeling some right sided weakness. She admits to feeling a little off balance when standing which she relates to her dizziness. Past Med Surg Social Fam HX - Past Medical History Medical history: hypertension, TIA, other Additional medical history: a-fib Psychiatric history: no psych history - Past Surgical History Surgical History: no surgical history - Social History Smoking Status: Former smoker Smokeless Tobacco Status: No Alcohol use: none Drug use: none - Family History Mother Living Status: Hx Family Cardiac Disorders: Yes Hx Family Respiratory Disorders: No Hx Family Cancer: No Hx Family GI Disorders: No Hx Family Endocrine Disorder: No Father Living Status: Age at : 68 Cause of : cardiac arrest Hx Family Respiratory Disorders: No Hx Family Cancer: No Hx Family GI Disorders: No Hx Family Genitourinary Disorders: No Hx Family Endocrine Disorder: No Hx Family Autoimmune Disorders: No Medications and Allergies LORazepam [Ativan] 0.5 mg PO HS 03/24/16 [History] Lutein 40 mg PO QPM 03/24/16 [History] Aspirin 81 mg PO DAILY #30 tab.chew 03/27/16 [Rx] Metoprolol [Lopressor] 25 mg PO QAM 12/08/18 [History] Cholecalciferol (Vitamin D3) [Vitamin D3] 1,000 units PO QAM 12/09/18 [History] Flaxseed Oil [Palo-3 Flaxseed Oil] 1,000 mg PO QPM 12/09/18 [History] Metoprolol [Lopressor] 12.5 mg PO QAM 12/09/18 [History] Multivitamin [Daily Multiple Vitamin] 1 tab PO QPM 12/09/18 [History] Omeprazole Magnesium [Prilosec Otc] 20 mg PO DAILY 12/09/18 [History] Allergy/AdvReac Type Severity Reaction Status Date / Time No Known Allergies Allergy Verified 02/18/15 15:50 All Systems: The remainder of the systems were reviewed and are negative - Constitutional Constitutional ROS IM: fatigue, no chills, no increased appetite, no night sweats - Eyes Eyes: left: blurred vision (Patient reports intermittent blurred vision in left eye. ) - Nose, Mouth, Throat Nose, mouth and throat: dizziness, no abnormal hearing, no change in voice, no disequilibrium, no dysphagia, no epistaxis, no nasal trauma - Cardiovascular Cardiovascular ROS IM: no acrocyanosis, no chest pain, no leg edema, no slow heart rate, no syncope - Respiratory Respiratory IM: no cough, no dyspnea, no stridor - Gastrointestinal Gastrointestinal: nausea, no abdominal pain, no diarrhea, no vomiting - Genitourinary Genitourinary ROS: no abnormal meses, no difficulty voiding - Musculoskeletal Musculoskeletal ROS IM: no arthralgias, no back pain - Integumentary Integumentary IM: no acne, no dry skin - Neurological Neurological ROS: dizziness, no abnormal hearing, no abnormal movements, no abnormal speech, no lack of coordination, no loss of vision, no vertigo - Psychiatric Psychiatric general PM: no abnormal sleep pattern, no anxiety, no depression, no hopelessness, no memory loss, no panic attacks Physical Examination - Vital Signs Vital Signs: Initial Vital Signs Temp Pulse Resp BP Pulse Ox 97.6 F 70 18 184/100 97 12/08/18 18:03 12/08/18 18:03 12/08/18 18:03 12/08/18 18:03 12/08/18 18:03 Results - Laboratory Findings CBC and BMP: 12/10/18 02:30 12/10/18 02:30 Abnormal lab findings: Abnormal lab results Heparin Anti-Xa, Unfract 1.03 IU/mL (0.30-0.70) H* 12/10/18 02:30 Potassium 3.3 mEq/L (3.5-5.1) L 12/10/18 02:30 Chloride 108 mEq/L (98-107) H 12/10/18 02:30 Carbon Dioxide 21 mEq/L (23-29) L 12/10/18 02:30 Creatinine 1.24 mg/dL (0.60-1.20) H 12/09/18 04:28 Est GFR ( Amer) 51 (> 60) L 12/09/18 04:28 Est GFR (Non-Af Amer) 59 (> 60) L 12/10/18 02:30 Glucose 115 mg/dL (70-105) H 12/10/18 02:30 Hemoglobin A1c 6.0 % (-5.6) H 12/09/18 04:28 Calcium 8.5 mg/dL (8.6-10.3) L 12/10/18 02:30 Phosphorus 2.1 mg/dL (2.7-4.5) L 12/10/18 02:30 Serum Total Protein 6.2 g/dL (6.4-8.9) L 12/09/18 04:28 Albumin 3.4 g/dL (3.5-5.7) L 12/09/18 04:28 Triglycerides 152 mg/dL (< 150) H 12/09/18 04:28 LDL Cholesterol, Calc 122 mg/dL (0-99) H 12/09/18 04:28 Ur Specific [place] 1.008 (1.010-1.025) L 12/09/18 03:34 Urine Blood Trace (Negative) H 12/09/18 03:34 Ur Leukocyte Esterase Large (Negative) H 12/09/18 03:34 Urine Microscopic WBC 50-100 per hpf (0-3) H 12/09/18 03:34 Ur Squamous Epith Cells Moderate per lpf (None-Few) H 12/09/18 03:34 Consult Discharge Plan - Plan Referrals: Bina Ontiveros MD [Primary Care Provider] - <Tariq Parr I - Last Filed: 12/10/18 15:56> Date of Encounter: 12/10/18 Assessment and Plan (1) CVA (cerebral vascular accident) Current Visit: Yes Status: Acute Pt was seen and examined, my medical decision was reviewed with the Resident Physician, I agree with the documented findings, disposition and treatment plan, as described except to the extent set forth below Clinically patient is a stable no significant focal deficit she is on anticoagulation She did have another independent risk factor with bilateral carotid stenosis that may require some intervention later on as an outpatient Vascular surgery is been consulted, we will follow the recommendations Tariq Parr MD Qualifiers: CVA mechanism: embolism Precerebral and cerebral artery: unspecified precerebral artery Qualified Code(s): I63.10 - Cerebral infarction due to embolism of unspecified precerebral artery History of Present Illness HPI: Ms. Zarco is a 78 year old female All Systems: The remainder of the systems were reviewed and are negative Physical Examination - Vital Signs Vital Signs: Initial Vital Signs Temp Pulse Resp BP Pulse Ox 97.6 F 70 18 184/100 97 12/08/18 18:03 12/08/18 18:03 12/08/18 18:03 12/08/18 18:03 12/08/18 18:03 - Exam Exam: GENERAL: Comfortable in no acute distress HEENT: Normal LUNGS: CTA HEART: RRR, S1 S2 Audible, no murmur EXTREMITIES: No Pedal edema. DETAILED NEUROLOGICAL EXAMINATION: MENTAL STATUS: Oriented to person, place, date and situation. Memory: knows the President, Aware of recent events Recent Memory Intact, Attention span is normal Cranial Nerve Examination: CN - II: Visual Acuity, Field of Vision Normal, Fundus examination: No disk edema, Pupils- size shape reaction to light and accommodation: All normal. CN III, IV, : External ocular movements were intact, Pupils were reactive, Nodrooping of the eyelids CN V: Sensation over the face to light touch and pinprick all normal. Corneal reflexes not tested, jaw jerk normal. CN VII: No facial asymmetry, no flattening of nasolabial folds, no difficulty in closing the eyes, no loss of forehead wrinkles, no difficulty in eye-closure, frowning raising eyebrows. CNVIII: No significant hearing loss CN IX, X: Uvula centralized not deviated, Gag reflex: Not tested CN X1: Sternocleidomastoid, trapezius, normal or evidence of any weakness. CN X11: No Dysarthria, no wasting or fibrilation f tongue muscles, no deviation, tongue muscle strength normal. Motor examination: No hypertrophy, tone was normal, power grade 0-5 Upper limbs Proximal- No difficulty in lifting the arms above the head. Distal- No weakness in distal muscles On formal testing 5/5 all over Lower limbs On formal testing 5/5 all over Coordination: [id number] normal. Target pursuit normal finger tapping normal, Rapid alternating moment of wrist normal Sensory system: Superficial sensations- Touch normal. Pain- Pinprick, Temperature all normal, Deep sensation normal, Joint position sense normal. Cortical sensation, Tactile discrimination, localization and extinction all normal. Deep tendon reflexes. Symmetrical bilateral, No evidence of Babinski. No sign of meningeal irritation Gait Examination: Deferred - Constitutional General appearance: comfortable Results - Laboratory Findings CBC and BMP: 12/10/18 02:30 12/10/18 02:30 Abnormal lab findings: Abnormal lab results Heparin Anti-Xa, Unfract 1.03 IU/mL (0.30-0.70) H* 12/10/18 02:30 Potassium 3.3 mEq/L (3.5-5.1) L 12/10/18 02:30 Chloride 108 mEq/L (98-107) H 12/10/18 02:30 Carbon Dioxide 21 mEq/L (23-29) L 12/10/18 02:30 Creatinine 1.24 mg/dL (0.60-1.20) H 12/09/18 04:28 Est GFR ( Amer) 51 (> 60) L 12/09/18 04:28 Est GFR (Non-Af Amer) 59 (> 60) L 12/10/18 02:30 Glucose 115 mg/dL (70-105) H 12/10/18 02:30 Hemoglobin A1c 6.0 % (-5.6) H 12/09/18 04:28 Calcium 8.5 mg/dL (8.6-10.3) L 12/10/18 02:30 Phosphorus 2.1 mg/dL (2.7-4.5) L 12/10/18 02:30 Serum Total Protein 6.2 g/dL (6.4-8.9) L 12/09/18 04:28 Albumin 3.4 g/dL (3.5-5.7) L 12/09/18 04:28 Triglycerides 152 mg/dL (< 150) H 12/09/18 04:28 LDL Cholesterol, Calc 122 mg/dL (0-99) H 12/09/18 04:28 Ur Specific [place] 1.008 (1.010-1.025) L 12/09/18 03:34 Urine Blood Trace (Negative) H 12/09/18 03:34 Ur Leukocyte Esterase Large (Negative) H 12/09/18 03:34 Urine Microscopic WBC 50-100 per hpf (0-3) H 12/09/18 03:34 Ur Squamous Epith Cells Moderate per lpf (None-Few) H 12/09/18 03:34
--- NOTE | 2018-12-10 16:29 | Electrocardiograph Report ---
[address] [address] Test Date: 2018-12-09 Pat Name: Janeth Zarco Department: 111 Room: 2NE23 Gender: F [employer]: Arline : 1940 Requested By: John Martinez Order Number: [id number] Reading MD: Rin Manning Measurements Intervals [place] Rate: 65 P: 42 SD: 143 QRS: -18 QRSD: 94 T: 9 QT: 438 QTc: 449 Interpretive Statements SINUS RHYTHM MODERATE VOLTAGE CRITERIA FOR LVH, CONSIDER NORMAL VARIANT Electronically Signed On 12-10-2018 16:28:27 EDT by Rin Manning
[2018-12-10] MEDS: Heparin 25,000 UNIT/250 ML D5W 25,000 UNIT/250 ML IV.SOLN IVC SCH (18:05)
[2018-12-10] MEDS: Ondansetron 4 MG/2 ML VIAL IVP PRN (18:33)
--- NOTE | 2018-12-10 19:43 | Internal Med Progress Note ---
Hospitalist Progress Note - Encounter Date of Encounter: 12/10/18 Time of Encounter: 15:10 - Subjective Interval History: Ms Zarco states she is always watch her diet and exercise routinely. She also maintains that she has been told that her cholesterol has been okay. She admits to occasional dizziness with head movement. She was initially opposed to initiating anticoagulation but is now agreeable to anticoagulation. And her son who was at the bedside would prefer Xarelto GEN: Denies fever, chills or malaise HEENT: Denies headache blurriness, or dysphagia RESP: Denies SOB or cough CV: Denies chest pain reports occasional palpitations GI: Denies Nausea, vomiting, diarrhea or constipation Reviewed current in hospital medications with modifications see orders Reviewed Routine labs - Exam Vitals: Temp Pulse Resp BP Pulse Ox 98.4 F 70 16 180/99 97 12/10/18 07:16 12/10/18 16:28 12/10/18 16:28 12/10/18 16:28 12/10/18 07:16 Exam: GEN: NAD, A&O x 3, Pleasant and conversant SKIN: [place] warm acyanotic not jaundice HEART: Irregularly irregular rate and rhythm, no murmurs LUNGS: CTA no wheeze or crackles, overall non labored ABDOMEN; Soft, non tender or distended, BS x 4 normactive EXT: No LE edema, Pedal pulses 1+, radial pulses 2+ PSYCH: Mood and affect is appropriate Affib noted on rhythm telemetry but rate controlled at 88-94 - Assessment and Plan (1) CVA (cerebral vascular accident) Current Visit: Yes Status: Acute Assessment and Plan: Discussed with patient regarding secondary prevention with optimizing medical regimen. LDL not at goal continue Lipitor 40 mg aspirin patient is now agreeable to anticoagulation therapy for atrial fibrillation. She prefers Xarelto. She currently needs evaluated by vascular surgery for bilateral carotid stenosis as such we will continue heparin drip for now plan will be to start Xarelto by in case intervention is planned by vascular surgeon. Continue with speech therapy, occupational as well as physical therapy. She is agreeable reluctantly to ECF placement for rehabilitation. Given a recent stroke goal blood pressure within next 24hrs 160-180 for cerebral perfusion patient with acute CVA possible due to atrial fibrillation. MR/MR head/brain wo con IMPRESSION: 1. Scattered acute infarcts involving the left frontal and temporal lobes. No significant mass effect or midline shift. 2. Otherwise, no acute intracranial abnormality. 3. Minimal global parenchymal volume loss with minimal chronic microvascular ischemic changes. EV/EV echo with saline Impressions: LVEF 55-60%. Mild left ventricular diastolic dysfunction. Normal right ventricular structure and function. Mild biatrial dilatation. Mild-moderate aortic regurgitation. Mild-moderate mitral regurgitation. Moderate tricuspid regurgitation. Mild pulmonary hypertension. No evidence of PFO with agitated saline contrast. Plan: - patient started on a heparin drip - Neurology consulted, recommendations appreciated -started on aspirin 81mg/PO daily and a statin. - CTA head and neck at neurology discretion (2) Tricuspid regurgitation Current Visit: No Status: Chronic Assessment and Plan: Currently asymptomatic would need outpatient follow-up with cardiology continue to optimize medical treatment (3) ANDER (acute kidney injury) Current Visit: Yes Status: Acute Assessment and Plan: Resolved serum creatinine is 0.92 (4) Atrial fibrillation Current Visit: Yes Status: Chronic Assessment and Plan: patient reported being diagnosed with A.fib more than 15 years ago but she refused to be on an anticoagulant due to fears of bleeding. Plan - On metoprolol 25mg/PO daily for rate control - started on heparin drip. will be discharged on an oral anticoagulant CHADSVASC score >2. She is agreeable to starting Xarelto. Vascular surgery consult is pending due to bilateral carotid stenosis should incase intervention is planned during this hospital stay will keep on heparin drip for now (5) Hypertension Current Visit: Yes Status: Chronic Assessment and Plan: Given the acute infarct goal blood pressure should be 160-180 in the next 24 hours was cerebral perfusion (6) Carotid stenosis, bilateral Current Visit: Yes Status: Acute Assessment and Plan: She seems to describe is symptomatic intermittently vascular surgery consult is pending (7) Dyslipidemia Current Visit: Yes Status: Acute Assessment and Plan: LDL is elevated not at goal, though she denies any former diagnosis of hyperlipidemia given stroke she will benefit from high intensity statin therapy DVT Prophylaxis: Currently on heparin drip - Time Spent with Patient Total time spent is greater than 50% in coordination of care (as documented) at patient's floor/unit and/or counseling patient: Plan of Care Discussed with: family Internal Medicine: Result - Labs CBC & Chem 7: 12/10/18 02:30 07/30/19 02:30 Labs: Short CBC 12/10/18 Range/Units 02:30 WBC 10.0 (4.3-11.1) K/mcL Hgb 11.9 (11.5-15.4) g/dL Hct 35.3 (35.3-44.9) % Plt Count 272 (140-400) K/mcL Neutrophils # 6.7 (1.6-8.9) K/mcL BMP 12/10/18 02:30 Sodium 137 Potassium 3.3 L Chloride 108 H Carbon Dioxide 21 L BUN 11 Creatinine 0.92 Glucose 115 H Calcium 8.5 L - ABG Interpretation ABG results: PT/INR, D-dimer PT 11.7 Seconds (9.4-12.1) 12/09/18 12:32 - VTE Documentation of Mechanical Device: Intermittent pneumatic compression device Consult Discharge Plan - Plan Referrals: Bina Ontiveros MD [Primary Care Provider] - (1) CVA (cerebral vascular accident) Qualifiers: CVA mechanism: embolism Precerebral and cerebral artery: unspecified precerebral artery Qualified Code(s): I63.10 - Cerebral infarction due to embolism of unspecified precerebral artery (2) Tricuspid regurgitation Qualifiers: Cardiac valve disease etiology: etiology unspecified Qualified Code(s): I07.1 - Rheumatic tricuspid insufficiency (4) Atrial fibrillation Qualifiers: Atrial fibrillation type: chronic Qualified Code(s): I48.2 - Chronic atrial fibrillation (5) Hypertension Qualifiers: Hypertension type: unspecified Qualified Code(s): I10 - Essential (primary) hypertension
[2018-12-10] MEDS: Acetaminophen 325 MG TABLET PO PRN (22:06)
[2018-12-11 07:55] VITALS: BP 174/79
[2018-12-11] MEDS: Metoprolol XL (24 HR) Succ 25 MG TAB.ER.24H PO SCH (08:09)
[2018-12-11] MEDS: Acetaminophen 325 MG TABLET PO PRN (08:09)
[2018-12-11] MEDS: Aspirin 81 MG TAB.CHEW PO SCH (08:09)
[2018-12-11] MEDS ORDERED: Cholecalciferol (D-3) 1,000 UNIT (25MCG) TABLET PO SCH (09:00)
--- NOTE | 2018-12-11 09:33 | Neurology - Consult Note ---
Date of Encounter: 12/11/18 Time of Encounter: 09:15 Assessment and Plan (1) CVA (cerebral vascular accident) Current Visit: Yes Status: Acute Bilateral Carotid stenosis awaiting evaluation by Vascular Surgery to be followed outpatient. Recommend continued anticoagulation with heparin bridging to Xarelto pending recommendations by Vascular. Continue aspirin and statin therapy. Case discussed with Dr. Parr. Qualifiers: CVA mechanism: embolism Precerebral and cerebral artery: unspecified prec erebral artery Qualified Code(s): I63.10 - Cerebral infarction due to embolism of unspecified precerebral artery History of Present Illness Chief complaint: "Headache" HPI: Ms. Zarco is a 78 year old female admitted from ED for embolic CVA. She continues to display a mild expressive aphasia with minimal ride sided facial droop and flattening of right nasolabial fold. Her chief concern today is a head ache which she states has been present since her admission but responds well to tylenol and appears to be improving. She also reports muscle soreness on her right side. Admits that rehab is going well and her strength is improving. Amenable to anticoagulation outpatient. Past Med Surg Social Fam HX - Past Medical History Medical history: hypertension, TIA, other Additional medical history: a-fib Psychiatric history: no psych history - Past Surgical History Surgical History: no surgical history - Social History Smoking Status: Former smoker Smokeless Tobacco Status: No Alcohol use: none Drug use: none - Family History Mother Living Status: Hx Family Cardiac Disorders: Yes Hx Family Respiratory Disorders: No Hx Family Cancer: No Hx Family GI Disorders: No Hx Family Endocrine Disorder: No Father Living Status: Age at : 68 Cause of : cardiac arrest Hx Family Respiratory Disorders: No Hx Family Cancer: No Hx Family GI Disorders: No Hx Family Genitourinary Disorders: No Hx Family Endocrine Disorder: No Hx Family Autoimmune Disorders: No Medications and Allergies LORazepam [Ativan] 0.5 mg PO HS 03/24/16 [History] Lutein 40 mg PO QPM 03/24/16 [History] Aspirin 81 mg PO DAILY #30 tab.chew 03/27/16 [Rx] Metoprolol [Lopressor] 25 mg PO QAM 12/08/18 [History] Cholecalciferol (Vitamin D3) [Vitamin D3] 1,000 units PO QAM 12/09/18 [History] Flaxseed Oil [Adrian-3 Flaxseed Oil] 1,000 mg PO QPM 12/09/18 [History] Metoprolol [Lopressor] 12.5 mg PO QAM 12/09/18 [History] Multivitamin [Daily Multiple Vitamin] 1 tab PO QPM 12/09/18 [History] Omeprazole Magnesium [Prilosec Otc] 20 mg PO DAILY 12/09/18 [History] Allergy/AdvReac Type Severity Reaction Status Date / Time No Known Allergies Allergy Verified 02/18/15 15:50 All Systems: The remainder of the systems were reviewed and are negative - Constitutional Constitutional ROS IM: no chills, no fever(s) - Nose, Mouth, Throat Nose, mouth and throat: headache(s), no abnormal hearing, no dizziness, no dysphagia - Cardiovascular Cardiovascular ROS IM: no chest pain, no dyspnea - Respiratory Respiratory IM: no cough, no hemoptysis, no wheezing - Gastrointestinal Gastrointestinal: nausea, no abdominal pain, no diarrhea - Genitourinary Genitourinary ROS: no difficulty urinating, no difficulty voiding - Musculoskeletal Musculoskeletal ROS IM: myalgias, no back pain, no numbness, no radiating pain into limb, no tingling Musculoskeletal: right: hip pain (Admits to chronic right hip pain) - Integumentary Integumentary IM: no acne, no change in hair, no dry skin - Neurological Neurological ROS: abnormal gait, no behavioral changes, no disequilibrium, no focal weakness, no loss of vision, no numbness, no paresthesias, no restless leg s, no sensory deficit, no syncope, no tingling - Psychiatric Psychiatric general PM: no abnormal sleep pattern, no anhedonia, no anxiety, no auditory hallucinations, no hallucinations, no hopelessness, no visual hallucinations Physical Examination - Vital Signs Vital Signs: Initial Vital Signs Temp Pulse Resp BP Pulse Ox 97.6 F 70 18 184/100 97 12/08/18 18:03 12/08/18 18:03 12/08/18 18:03 12/08/18 18:03 12/08/18 18:03 - Exam Exam: Continues to display minimal right sided facial droop with flattening of right nasolabial fold. - Constitutional General appearance: comfortable - Neurologic Sensorimotor examination: intact Detailed motor examination: grossly full strength in all extremities Detailed sensory examination: intact Reflex and gait examination: intact Reflexes: Biceps: 2+, Triceps: 2+, Brachioradialis: 2+, Patella: 2+, Achilles: 2+ Mental Status Examination: awake, alert, oriented to person, oriented to place, oriented to time, follows commands appropriately, no agnosia, makes eye contact, expressive aphasia (minimal expressive aphasia ) Cranial nerve examination: PERRL, EOMI, visual [place] intact, sensory to face intact, hearing is intact symmetrically, soft palate elevates bilaterally upon phonation, flexes SCM and trapezius muscles symmetrically with full power, tongue protrudes midline, no atrophy or facial fasiculations present Cranial Nerve Exam: flattening of masolabic/folds: Right Cerebellar examination: performs finger to nose and heel to mcdowell symmetrically without ataxia Results - Laboratory Findings CBC and BMP: 12/10/18 02:30 12/10/18 02:30 Abnormal lab findings: Abnormal lab results Heparin Anti-Xa, Unfract 0.76 IU/mL (0.30-0.70) H 12/10/18 17:25 Potassium 3.3 mEq/L (3.5-5.1) L 12/10/18 02:30 Chloride 108 mEq/L (98-107) H 12/10/18 02:30 Carbon Dioxide 21 mEq/L (23-29) L 12/10/18 02:30 Creatinine 1.24 mg/dL (0.60-1.20) H 12/09/18 04:28 Est GFR ( Amer) 51 (> 60) L 12/09/18 04:28 Est GFR (Non-Af Amer) 59 (> 60) L 12/10/18 02:30 Glucose 115 mg/dL (70-105) H 12/10/18 02:30 Hemoglobin A1c 6.0 % (-5.6) H 12/09/18 04:28 Calcium 8.5 mg/dL (8.6-10.3) L 12/10/18 02:30 Phosphorus 2.1 mg/dL (2.7-4.5) L 12/10/18 02:30 Serum Total Protein 6.2 g/dL (6.4-8.9) L 12/09/18 04:28 Albumin 3.4 g/dL (3.5-5.7) L 12/09/18 04:28 Triglycerides 152 mg/dL (< 150) H 12/09/18 04:28 LDL Cholesterol, Calc 122 mg/dL (0-99) H 12/09/18 04:28 Ur Specific [place] 1.008 (1.010-1.025) L 12/09/18 03:34 Urine Blood Trace (Negative) H 12/09/18 03:34 Ur Leukocyte Esterase Large (Negative) H 12/09/18 03:34 Urine Microscopic WBC 50-100 per hpf (0-3) H 12/09/18 03:34 Ur Squamous Epith Cells Moderate per lpf (None-Few) H 12/09/18 03:34 Consult Discharge Plan - Plan Referrals: Bina Ontiveros MD [Primary Care Provider] -
--- NOTE | 2018-12-11 11:16 | Discharge Summary ---
- NOTES TO OUTPATIENT PROVIDER Notes to Outpatient Provider: Posthospital discharge for stroke, patient has bilateral carotid stenoses would need outpatient vascular surgeon follow-up with Dr. Delgadillo, will also need outpatient follow-up for her tricuspid regurg Date of Encounter: 12/11/18 Time of Encounter: 11:13 - Discharge Diagnosis (1) CVA (cerebral vascular accident) Priority: Primary Status: Acute Assessment and Plan: Discussed with patient regarding secondary prevention with optimizing medical regimen. LDL not at goal continue Lipitor 40 mg aspirin patient is now agreeable to anticoagulation therapy for atrial fibrillation. She prefers Xarelto. Discussed case with Dr. Delgadillo vascular surgeon regarding bilateral carotid stenosis. She will be scheduled as an outpatient within the next 2-4 weeks to get established and discuss treatment option. Continue with speech therapy, occupational as well as physical therapy. She is agreeable reluctantly to ECF placement for rehabilitation. Given a recent stroke goal blood pressure within next 24hrs 160-180 for cerebral perfusion patient with acute CVA possible due to atrial fibrillation. MR/MR head/brain wo con IMPRESSION: 1. Scattered acute infarcts involving the left frontal and temporal lobes. No significant mass effect or midline shift. 2. Otherwise, no acute intracranial abnormality. 3. Minimal global parenchymal volume loss with minimal chronic microvascular ischemic changes. EV/EV echo with saline Impressions: LVEF 55-60%. Mild left ventricular diastolic dysfunction. Normal right ventricular structure and function. Mild biatrial dilatation. Mild-moderate aortic regurgitation. Mild-moderate mitral regurgitation. Moderate tricuspid regurgitation. Mild pulmonary hypertension. No evidence of PFO with agitated saline contrast. Plan: - patient started on a heparin drip - Neurology consulted, recommendations appreciated -started on aspirin 81mg/PO daily and a statin. - CTA head and neck at neurology discretion Qualifiers: CVA mechanism: embolism Precerebral and cerebral artery: unspecified precerebral artery Qualified Code(s): I63.10 - Cerebral infarction due to embolism of unspecified precerebral artery (2) Atrial fibrillation Priority: Primary Status: Chronic Assessment and Plan: rate controlled, stop heparin upon discharge on xarelto. patient reported being diagnosed with A.fib more than 15 years ago but she refused to be on an anticoagulant due to fears of bleeding. Plan - On metoprolol 25mg/PO daily for rate control - started on heparin drip. will be discharged on an oral anticoagulant CHADSVASC score >2. She is agreeable to starting Xarelto. Vascular surgery consult is pending due to bilateral carotid stenosis should incase intervention is planned during this hospital stay will keep on heparin drip for now Qualifiers: Atrial fibrillation type: chronic Qualified Code(s): I48.2 - Chronic atrial fibrillation (3) Tricuspid regurgitation Priority: Secondary Status: Chronic Assessment and Plan: Currently asymptomatic would need outpatient follow-up with cardiology continue to optimize medical treatment Qualifiers: Cardiac valve disease etiology: etiology unspecified Qualified Code(s): I07.1 - Rheumatic tricuspid insufficiency (4) ANDER (acute kidney injury) Priority: Secondary Status: Acute Assessment and Plan: Resolved serum creatinine is 0.92 (5) Hypertension Priority: Secondary Status: Chronic Assessment and Plan: Given the acute infarct goal blood pressure was 160-180 in the past 24 hours for cerebral perfusion, metoprolol 25 mg XL would add lisinopril 10 mg at discharge Qualifiers: Hypertension type: unspecified Qualified Code(s): I10 - Essential (primary) hypertension (6) Carotid stenosis, bilateral Priority: Secondary Status: Acute Assessment and Plan: Discussed with Dr Delgadillo vascular surgeon, outpatient follow-up with discussed treatment options within the next 2-4 weeks, nursing staff would help schedule patient (7) Dyslipidemia Priority: Secondary Status: Acute Assessment and Plan: LDL is elevated not at goal, though she denies any former diagnosis of hyperlipidemia given stroke she will benefit from high intensity statin therapy Hospital course: Ms. Zarco is a 78 year old female was hospitalized for stroke of this he presented with left-sided facial droop and slurred speech she was seen by the neurologist. She has a report being in and out of atrial fibrillation for the past 2 days prior to her presentation and admitted to have declined in the past from anticoagulation therapy. She was not considered a candidate for TPA given late presentation. She was treated with heparin for atrial fibrillation which has been switched to xarelto upon discharge. She was initially reluctant to initiation of anticoagulation however upon discussion of the risks and benefits between the patient and her son was at the bedside they opted for Xarelto. Patient also during her workup was noted to have bilateral carotid stenosis, the case was discussed with the on-call vascular surgeon and she is to schedule for an outpatient to discuss treatment option within the next 4 weeks. Patient did receive physical therapy occupational therapy and speech therapy during this hospital stay and has been discharged to a extended care facility to continue therapy. Although she stated had cholesterol has not been a problem for her LDL was 120 at goal especially given her increased cardiovascular risk she reluctantly agreed to high intensity Statin therapy - Time Spent with Patient Total time spent providing and/or coordinating discharge services: 45 mins Specific discharge activities: Please make sure you take her medicines as prescribed and participate in physical therapy, occupational as well as speech therapy. - Discharge Medications Prescriptions: New LORazepam [Ativan] 0.5 mg PO HS 7 Days #7 tablet Atorvastatin [Lipitor] 40 mg PO HS #30 tablet Metoprolol XL (24 HR) Succ [Toprol Xl] 25 mg PO DAILY #30 tab.er.24h Acetaminophen [Tylenol] 650 mg PO Q6HR PRN #30 tablet PRN Reason: Pain Lisinopril [Zestril] 10 mg PO DAILY #30 tablet Continued Lutein 40 mg PO QPM Cholecalciferol (Vitamin D3) [Vitamin D3] 1,000 units PO QAM Multivitamin [Daily Multiple Vitamin] 1 tab PO QPM Omeprazole Magnesium [Prilosec Otc] 20 mg PO DAILY Discontinued LORazepam [Ativan] 0.5 mg PO HS Aspirin 81 mg PO DAILY #30 tab.chew Metoprolol [Lopressor] 25 mg PO QAM Flaxseed Oil [[place]-3 Flaxseed Oil] 1,000 mg PO QPM Metoprolol [Lopressor] 12.5 mg PO QAM Home Medications: Lutein 40 mg PO QPM 03/24/16 [History] Cholecalciferol (Vitamin D3) [Vitamin D3] 1,000 units PO QAM 12/09/18 [History] Multivitamin [Daily Multiple Vitamin] 1 tab PO QPM 12/09/18 [History] Omeprazole Magnesium [Prilosec Otc] 20 mg PO DAILY 12/09/18 [History] Acetaminophen [Tylenol] 650 mg PO Q6HR PRN #30 tablet 12/11/18 [Rx] Atorvastatin [Lipitor] 40 mg PO HS #30 tablet 12/11/18 [Rx] LORazepam [Ativan] 0.5 mg PO HS 7 Days #7 tablet 12/11/18 [Rx] Lisinopril [Zestril] 10 mg PO DAILY #30 tablet 12/11/18 [Rx] Metoprolol XL (24 HR) Succ [Toprol Xl] 25 mg PO DAILY #30 tab.er.24h 12/11/18 [Rx] Allergies/Adverse Reactions: Allergy/AdvReac Type Severity Reaction Status Date / Time No Known Allergies Allergy Verified 02/18/15 15:50 Date of admission: 12/10/18 15:04 Primary care physician: Bina Ontiveros Consults: 12/08/18 20:25 Consult to Occupational Therapy [CONS] Routine Comment: Evaluate, develop and implement POC Reason for Consult: CVA Does patient have active BEDREST order?: Yes Is patient medically & hemodynamically stable?: Yes Patient assessed for mobility or mobilized this visit?: No Consult to Physical Therapy [CONS] Routine Comment: Evaluate, develop and implement POC Reason for Consult: CVA Does patient have active BEDREST order?: Yes Is patient medically & hemodynamically stable?: Yes Patient assessed for mobility or mobilized this visit?: No Consult to Speech Therapy [CONS] Routine Comment: Evaluate, develop and implement POC Reason for Consult: CVA Call Completed: No 12/09/18 11:30 Consult to Neurology [CONS] Routine Consulting Provider: [facility] Reason for Consult: Possible embolic cva Call Completed: Yes 12/10/18 19:40 Consult to Vascular Surgery [CONS] Routine Consulting Provider: [facility] [place] Reason for Consult: bilateral carotid stenosis, recent acute infarct Call Completed: No Discharging clinician: Nick Finn - Constitutional Vitals: Temp Pulse Resp BP Pulse Ox 97.9 F 81 17 174/79 97 12/11/18 07:51 12/11/18 07:51 12/11/18 07:51 12/11/18 07:51 12/11/18 07:51 General appearance: Present: A&O X 3 Exam: GEN: NAD, A&O x 3, Pleasant and conversant although speech still slowed with slight left facial droop noted. A daughter was at the bedside SKIN: [place] warm acyanotic not jaundice HEART: Irregularly irregular RR, grade 2/6 systolic murmurs LUNGS: CTA no wheeze or crackles, overall non labored ABDOMEN; Soft, non tender or distended, BS x 4 normactive EXT: No LE edema, Pedal pulses 1+, radial pulses 2+ PSYCH: Mood and affect is appropriate - Patient Status Disposition: Transfer Inpatient Rehab Fac Condition: Good Functional capacity at discharge: independent ambulation Overall status at discharge: patient is progressing back to baseline - Discharge Instructions Follow Up With: Bina Ontiveros MD [Primary Care Provider] - - Diet and Activity Activity: as per physical therapy Diet: low fat, low cholesterol, low salt diet - VTE Documentation of Mechanical Device: Intermittent pneumatic compression device
[2018-12-11] MEDS: Ondansetron 4 MG/2 ML VIAL IVP PRN (11:24)
[2018-12-11] MEDS ORDERED: *HR* Rivaroxaban 10 MG TABLET PO ONE (11:52)
[2018-12-11] MEDS ORDERED: Multivit/Ca/Min/Fe/FA 1 TAB TABLET PO SCH (18:00)
[2018-12-11] MEDS ORDERED: *HR* LORazepam 1 MG TABLET PO SCH (21:00)
[2018-12-12] MEDS ORDERED: *HR* Rivaroxaban 10 MG TABLET PO SCH (17:00)
== END 2018-12-11 13:55 | DRG 65 ==
LOC: 2NENU 18:03 → EMEROOARM 18:03 → 2NENU 20:15
PROVIDERS: ADMIT Internal Medicine Nephrology; ATTEND Internal Medicine Nephrology